=== PATIENT | female | born 1960 | race Caucasian/White ===

== ENCOUNTER 2018-07-24 18:27 | Day surgery (SDC) | payer OTHER, SELFPAY ==
--- NOTE | 2018-07-24 06:40 | APP_PTH ---
PATIENT: THIAGO DELGADO LOC: [facility] – [place] U#:[id number] AGE/SX: 57/F ROOM: RE07/24/[address]: Dr. Isaiah Sousa MD : 1960 BED: DIS: 07/25/2018 SPEC #: [id number] RECD: 07/25/18 07:35 STATUS: MARY REWood #: [id number] DELFIN: 07/24/18 06:[address]: Isaiah Sousa DEPT: SURGICAL PATHOLOGY RECD BY: Lamont Flowers ENTERED: 07/25/18 11:21 SP TYPE: APPENDIX OTHR DR: Dr. John Bowman III, MD Tissues: Appendix, NOS Procedures: Surgery Specimen Level III HEADER OPERATION: Laparoscopic appendectomy PRE-OP DIAGNOSIS: Acute appendicitis TISSUE SUBMITTED: Appendix MICROSCOPIC DIAGNOSIS Appendix: Acute appendicitis and periappendicitis. SJ:lorena 07/26/18 MICROSCOPIC DESCRIPTION Slides are reviewed. GROSS DESCRIPTION Received is one container labeled with the patient's name and designated appendix. The specimen consists of an appendix measuring 5.5 cm in length and up to 0.6 cm in average diameter. The attached periappendiceal adipose tissue measures up to 2.5 cm in width. No obvious perforation is identified. The serosa is congested. The lumen is pinpoint. No fecalith is identified. [employer] sections are submitted in one cassette. / SJ:lorena 07/25/18 TC:2 CPT: 94535
[2018-07-24] MEDS: Lactated Ringers 1,000 ML 100 ML IV (18:35)
[2018-07-24 18:53] VITALS: BP 144/87; PULSE 97; RESP 16; TEMP 37.3; O2SAT 99; BMI 27.4
--- NOTE | 2018-07-24 18:56 | HP.PCM_ITS ---
History and Physical Date of Admission: 07/24/18 HISTORY AND PHYSICAL Camilla Pinzon 1960 REFERRING PHYSICIAN: Abbey Miller CHIEF COMPLAINT: RLQ pain HPI: The patient is a 57 year old female with a complaint of abdominal pain. She notes a 2 day history of periumbilical now to RLQ pain along with nausea. She underwent a CT scan today consistent with appendicitis. Her WBC count is normal. Urine Hcg is pending PAST MEDICAL HISTORY Diagnosis Date ? Basal cell carcinoma in situ of skin of shoulder ? Basal cell carcinoma of back ? Endometriosis of other specified sites ? Tubular adenoma polyp of rectum 07/26/14 PAST SURGICAL HISTORY Procedure Laterality Date ? DELIVERY ONLY 1988 and 1991 , low cervical ? COLONOSCOPY & POLYPECTOMY 07/26/14 tubular adenoma rectum ? D&C, DIAG AND/OR THERAPEUTIC Dilation & curettage ? EXPLORATORY OF ABDOMEN Laparotomy, exp ? HOLTER MONITOR 24 HOUR ? MAL REM LESION 0.5 CM OR LESS 12/20/2009 Exc. right apical shoulder lesion ? PAST SURGICAL HISTORY OF 2 Vaginal Wall Cysts Removed Current Outpatient Prescriptions: enteric contrast (will be provided with radiology test) Take 1 Each by mouth one time only for [address] ABD/PEL WO Routine order Administer, As Directed One Time Only, via Oral, Rectal, both Oral and Rectal, Enteric Tube, Stoma or Indwelling Catheter, Enteric Contrast as designated per enteric contrast guidelines Disp: 1 Each Rfl: 0 albuterol HFA (PROAIR HFA) 90 mcg/actuation inhaler Inhale 2 Puffs as instructed every 4 hours as needed. Disp: 1 Inhaler Rfl: 1 ubidecarenone (CO Q-10 ORAL) Take by mouth once daily. Disp: Rfl: calcium carbonate (CALCIUM 300 ORAL) Take by mouth once daily. Disp: Rfl: TURMERIC ROOT EXTRACT ORAL Take by mouth once daily. Disp: Rfl: etodolac (LODINE) 400 mg tablet Take 1 tablet by mouth twice daily. as needed Disp: 180 tablet Rfl: 3 albuterol HFA (PROVENTIL HFA) 90 mcg/actuation inhaler Inhale 2 Puffs as instructed every 4 hours as needed. Disp: 1 Inhaler Rfl: 1 zolpidem (AMBIEN) 5 mg tablet Take 1 tablet by mouth at bedtime as needed for Sedation for up to 30 days. Disp: 6 tablet Rfl: 0 MULTIVIT &MINERALS/FERROUS FUM (MULTI VITAMIN ORAL) Take by mouth once daily. Disp: Rfl: No current facility-administered medications for this visit. ALLERGIES: Vicryl [Sutures] PERSONAL HISTORY: Social History Marital status: Spouse name: Jose Years of education: 16 Number of children: 2 Occupational History Occupation Employer Comment [employer] Social History Main Topics Smoking status: Never Smoker Smokeless tobacco: Never Used Alcohol use: Yes Comment: once yearly Drug use: No Sexual activity: Yes Partners with: Male control/protection: Rhythm Other Topics Concern No BLOOD TRANSFUSIONS No CAFFEINE No OCCUPATIONAL EXPOSURE No HOBBY HAZARD No SLEEP CONCERN No STRESS CONCERN No WEIGHT CONCERN No DIET No BACK CARE No EXERCISE No BIKE HELMET No SEAT BELT No SELF EXAMS No FAMILY HISTORY: FAMILY HISTORY Problem Relation Age of Onset ? Cataract Father ? Glaucoma Father ? other (lung) Father ? other (CHF) Father ? Stroke Paternal Grandmother ? Diabetes Paternal Grandmother ? COPD Mother ? Stroke Maternal Grandfather ? Heart Maternal Grandmother ? Cancer Maternal Uncle HODGKINS DISEASE ? Arthritis Maternal Aunt osteoarthritis ? Cerebral Embolism Maternal Uncle ? Coronary Artery Disease Other ? Diabetes Other ? Thyroid Maternal Aunt REVIEW OF SYMPTOMS: REVIEW OF SYSTEMS: General: The patient denies fatigue, denies weight loss, denies weight gain, denies feeling hot, and feelings of cold. Eyes: The patient denies glaucoma, denies eye injury/surgery, denies glasses or contacts. Ear/Nose/Throat: The patient denies allergies, denies hayfever, denies ear infections, and denies bloody noses. Cardiovascular: The patient denies chest pain, denies heart disease, denies high blood pressure, denies high cholesterol, and denies poor circulation. Respiratory: The patient denies tuberculosis, denies pneumonia, denies frequent cough, denies shortness of breath, and denies coughing up blood. Gastrointestinal: The patient denies difficulty swallowing, denies acid reflux, denies ulcers, denies jaundice/hepatitis, denies gallbladder problems, denies vomiting, denies black or tarry stools, denies hemorrhoids, denies bleeding from rectum, denies diverticulitis, denies constipation, denies diarrhea, denies loss of stool control, and denies hernias. Kidney/Bladder: The patient denies kidney stones, denies urine infections, and denies bloody urine. Skin: The patient denies a history of skin cancer, denies bleeding/changing moles, and denies a history of skin rash. Neurologic: The patient denies a history of epilepsy/convulsions, denies headaches, denies head/spinal injuries, and denies stroke/TIA. Psychiatric: The patient denies psychiatric medications, denies depression, and denies voices. Endocrine: The patient denies thyroid disorders, denies diabetes, and denies hormonal problems. Hematologic: The patient denies a history of bruising, denies bleeding, and denies anemia. Infections: The patient denies a history of measles and mumps, denies rheumatic fever, and denies sexually transmitted diseases. Musculoskeletal: The patient denies back pain/injury, denies back problems, denies sciatica, denies knee/foot trouble, denies arthritis, or denies gout. PHYSICAL EXAMINATION: General: The patient is 57 year old female, well nourished, well hydrated in no acute distress. The patient is oriented to time, place, and person. VITALS: There were no vitals taken for this visit. Body mass index is 27.46 kg/m?. HEENT: Normal cephalic, ataumatic, pupils are equally round, sclera are anicteric, mucous membranes are moist, oropharynx is clear. Neck has no masses, asymmetry or lymphadenopathy. Thyroid is unremarkable. Respiratory: Clear to auscultation and percussion. Normal respiratory excursion and pattern. Cardiac: Examination is regular rate and rhythm. Abdominal exam: Soft, tender RLQ, with no palpable masses. No hepatosplenomegaly. No palpable hernias. Rectal exam: exam deferred Extremities: no clubbing, cyanosis or edema. No adenopathy. Other: LABORATORY VALUES: As Noted Appointment on 07/24/2018 Component Date Value ? WBC, 07/24/2018 9.84 ? RBC, 07/24/2018 4.70 ? Hemoglobin, 07/24/2018 13.9 ? Hematocrit, 07/24/2018 41.9 ? MCV, 07/24/2018 89.1 ? MCH, 07/24/2018 29.6 ? MCHC, 07/24/2018 33.2 ? RDW, 07/24/2018 13.9 ? Platelet Cnt, 07/24/2018 245 ? MPV, [place] 07/24/2018 10.4 ? Neut%, [place] 07/24/2018 60.5 ? Lymp%, [place] 07/24/2018 27.0 ? [place]%, [place] 07/24/2018 9.7 ? Eos%, [place] 07/24/2018 2.3 ? Baso%, [place] 07/24/2018 0.5 ? Abs Neut, [place] 07/24/2018 5.95 ? Abs Lymp, [place] 07/24/2018 2.66 ? Abs [place], [place] 07/24/2018 0.95* ? Abs Eos, [place] 07/24/2018 0.23 ? Abs Baso, [place] 07/24/2018 0.05 Appointment on 07/21/2018 Component Date Value ? Cholesterol, Total 07/21/2018 212* ? Triglyceride 07/21/2018 149 ? HDL Cholesterol 07/21/2018 52 ? LDL Cholesterol 07/21/2018 130* ? Non HDL Cholesterol 07/21/2018 160* ? Fasting Time 07/21/2018 12 ? VLDL Cholesterol 07/21/2018 30* ? TC:HDL Ratio 07/21/2018 4.08 ? LDL:HDL Ratio 07/21/2018 2.50 IMPRESSION: Mild dilatation of the mid to distal aspect of the appendix with some mild adjacent fat stranding. This may be due to early or mild appendicitis. RADIOLOGIC STUDIES: As Noted Assessment IMPRESSION: acute appendicitis PLAN: I plan to perform a laparoscopic appendectomy. The planned surgical procedure was discussed extensively with the patient. The risks, benefits and anticipated outcomes of the procedure, the risks and benefits of the alternatives to the procedure, and the roles and tasks of the personnel to be involved, were discussed with the patient. My staff has also explained the procedure in understandable terms and the patient was given the option to take printed material concerning the planned procedure. The patient had the opportunity to ask questions concerning the planned procedure. The patient freely consents to the planned procedure. Libby 3.375gm Diagnoses: (K35.30) Acute appendicitis with localized peritonitis, without perforation, abscess, or gangrene (primary encounter diagnosis) Return to Clinic: The patient is instructed to follow-up with me 1 week post operatively. Isaiah Sousa MD
[2018-07-24 19:21] LABS: Internal QC Validated? YES +Cl - CLEAR BKGD; Pregnancy, Urine Negative Negative
[2018-07-24] MEDS: Piperacil/Tazobactam 3.375 GM/50 ML ML IV (19:36)
[2018-07-24] MEDS: Bupivacaine Mpf 0.5% 30 ML VIAL (20:15)
--- NOTE | 2018-07-24 20:20 | PCM.OPRPT ---
Report of Operation Date of Procedure: 07/24/18 Pre-Operative Diagnosis: acute appendicitis Post-Operative Diagnosis: acute appendicitis Surgery/Procedure Performed:: laparoscopic appendectomy patient safety tech: None Type of Anesthesia:: General Anesthesiologist: Demetri Calvillo Specimen's removed: appendix Estimated Blood Loss (mL): minimal Fluids Replaced: 450 - Admit VTE Documentation VTE Present on Admission: No VTE Mechan Device Prophylaxis: SCD's VTE Pharm Prophylaxis ordered?: No
[2018-07-24 20:23] VITALS: BP 124/86; BP 144/87; PULSE 85; RESP 18; TEMP 36.6; O2SAT 97
[2018-07-24 20:30] VITALS: BP 124/91; BP 144/87; PULSE 83; RESP 18; O2SAT 98
[2018-07-24 20:40] VITALS: BP 125/85; BP 144/87; PULSE 82; RESP 18; TEMP 36.8; O2SAT 99
[2018-07-24 21:01] VITALS: BP 126/87; PULSE 79; RESP 16; TEMP 36.5; O2SAT 99
[2018-07-24 21:06] VITALS: BMI 27.4
[2018-07-24 21:14] VITALS: BMI 27.4
[2018-07-24] MEDS: Ondansetron 4 MG/2 ML Vial IV (22:31)
[2018-07-24 23:04] VITALS: BP 135/78; PULSE 80; RESP 16; TEMP 36.8; O2SAT 99
[2018-07-25 01:03] VITALS: BP 133/86; PULSE 80; RESP 18; TEMP 36.5; O2SAT 97
[2018-07-25] MEDS: Lactated Ringers 1,000 ML 100 ML IV (03:14)
--- NOTE | 2018-07-25 06:17 | DCINST_ITS ---
Discharge Diet: Light diet - advance as tolerated Discharge Activity: May Not Drive - for 3-5 days or while taking narcotic pain meds. May shower in (days): 1 Suture Line Care: Avoid Pulling/Pushing, Avoid Pinching/Bending Additional Dressing/Incision Instructions:: Keep dressing clean and dry. Change or remove dressing in 2 days. Leave steri strips for 1 week. May protect with a gauze bandaid. Medications to take at Discharge Albuterol Sulfate [Proventil Hfa] 1 - 2 puff INHALATION Q4H PRN PRN 07/24/18 Calcium Carbonate/Vitamin D3 [Calcium 600 + Vit D Tablet] 1 tablet PO DAILY 07/24/18 Etodolac [Lodine] 400 mg PO BID PRN 07/24/18 Multivitamin [Once Daily] 1 each PO DAILY 07/24/18 Allergies/Adverse Reactions: Allergies No Known Allergies Allergy (Verified 07/24/18 18:48) Primary Care Physician: Jhon Bowman III, MD [Primary Care Provider] - Test Results: Test results from this visit will be discussed in further detail at your follow- up appointment, if applicable. Please Follow Up With: Isaiah Sousa MD - [phone] When: Call to make a follow up appointment in 1 week.
[2018-07-25 06:55] LABS: Hematocrit 38.6 % (37-47); Hemoglobin 12.7 g/dl (12.0-15.0); Mean Corp Hgb Conc 32.9 g/gl (32-36); Mean Corpuscular Hgb 29.5 pg (27.0-32.0); Mean Corpuscular Volume 89.6 fL (81-99); Mean Platelet Vol. 10.7 fl (6.2-12.0); Platelet Count 243 K/mm3 (150-450); RBC Distribution Width CV 13.6 % (11.6-14.6); Red Blood Count 4.31 M/mm3 (4.2-5.4); White Blood Count 11.5 K/mm3 (4.4-11.0)
[2018-07-25 06:56] LABS: Scan Indicated on CBC? Y/N NO
[2018-07-25] MEDS: Ibuprofen 400 MG Tablet PO ×2 (07:59→15:02)
[2018-07-25 08:11] VITALS: BP 131/86; PULSE 63; RESP 16; TEMP 36.7; O2SAT 97
[2018-07-25] MEDS: Piperacil/Tazobactam 3.375 GM/50 ML ML IV (09:47)
[2018-07-25 15:10] VITALS: BP 114/81; PULSE 72; RESP 16; TEMP 36.6; O2SAT 95
== END 2018-07-25 17:26 | disposition home or self-care (01) ==
LOC: SDC 18:32 → AC 18:40 → MS3 07-25 09:44
PROVIDERS: Family Provider Family Medicine; PCP Family Medicine; Referring Provider Surgery; Visit Provider Surgery
PROC: 0DTJ4ZZ Resection of Appendix, Percutaneous Endoscopic Approach (ICD-10-PCS; CPT 44970; principal; 2018-07-24 06:40)
DX: K35.30 Acute appendicitis with localized peritonitis, without perforation or gangrene (principal)
CPT/HCPCS: 00840; 44970; 36415; 81025; 85027; 88304; J7120; A4216; J2405